=== PATIENT | male | born 1945 | race Caucasian/White ===

== ENCOUNTER 2020-09-02 12:33 | Inpatient (IN) ==
[2020-09-02 13:30] LABS: Basophils # 0.1 10*3/uL (0.0-0.2); Basophils % 1.2 % (0.0-0.8); Eosinophils # 0.4 10*3/uL (0.0-0.87); Eosinophils % 3.8 % (0.00-10.9); Hematocrit 46.2 VOL% (42.0-52.0); Hemoglobin 15.5 GM/DL (14.0-18.0); Immature Granulocytes % 1.9 %; Immature Granulocytes Absolute 0.21 #; Lymphocytes # 1.8 10*3/uL (1.4-4.0); Mean Corpuscular HGB Conc 33.5 GM/DL (32-36); Mean Corpuscular Volume 87.7 FL (87-102); Mean Platelet Volume 11.4 FL (9.6-12.0); Monocytes % 9.2 % (1.7-12.7); Neutrophils % 66.9 % (38.7-73.9); Platelet Count 306 T/CUMM (130-400); Red Blood Count 5.27 MC/CUMM (3.8-5.5); Red Cell Distribution Width 12.6 % (9.3-17.3); White Blood Count 10.8 T/CUMM (4-12)
[2020-09-02 13:41] LABS: PT Patient Result 11.1 SECS (9.8-11.9)
[2020-09-02 13:59] LABS: Albumin 4.1 G/DL (3.4-5.0); Bilirubin,Total 1.9 MG/DL (0.2-1.0); Calcium 9.5 MG/DL (8.5-10.1); Osmolality,Calculated 263.5 MOS/KG (273-304); Total Protein 7.6 G/DL (6.4-8.3)
[2020-09-02] MEDS ORDERED: ENOXAPARIN 40 MG/0.4 ML SYRINGE SUBCUT STA (15:52)
[2020-09-02] MEDS ORDERED: ceFAZolin 2,000 MG in PREMIX 1 EACH IV ONE (15:58)
[2020-09-02] MEDS ORDERED: oxyCODONE/ACETAMINOPHEN 5-325 MG TABLET PO PRN (16:13)
[2020-09-02] MEDS ORDERED: HYDROmorphone 2 MG/1 ML VIAL IV PRN (16:13)
[2020-09-02] MEDS ORDERED: LACTATED RINGERS 1,000 ML IV SCH (16:30)
[2020-09-03] MEDS ORDERED: FAMOTIDINE 20 MG TABLET PO ONE (06:00)
[2020-09-03] MEDS ORDERED: POTASSIUM CHLORIDE RIDER 10 MEQ in PREMIX 1 EACH IV PRN (08:02)
[2020-09-03] MEDS ORDERED: HEPARIN 5,000 UNIT/1 ML VIAL ONE (08:05)
[2020-09-03] MEDS ORDERED: ceFAZolin 1,000 MG VIAL IV ONE (08:30)
[2020-09-03] MEDS ORDERED: TISSUE ADHESIVE 1 EACH APPLICATOR TOP ONE (10:38)
[2020-09-03] MEDS ORDERED: ONDANSETRON 4 MG/2 ML VIAL IV PRN (10:51)
[2020-09-03] MEDS ORDERED: HYDROmorphone 2 MG/1 ML VIAL IV PRN (10:51)
[2020-09-03] MEDS ORDERED: LIDOCAINE 2% 5 ML VIAL ONE (11:05)
[2020-09-03] MEDS ORDERED: ePHEDrine 50 MG/ML VIAL ONE (11:05)
[2020-09-03] MEDS ORDERED: SEVOFLURANE 1 UNIT/15 MINUTE INH ONE (11:05)
[2020-09-03] MEDS ORDERED: fentaNYL 100 MCG/2 ML VIAL ONE (11:05)
[2020-09-03] MEDS ORDERED: propofoL 200 MG/20 ML VIAL IV ONE (11:05)
[2020-09-03] MEDS ORDERED: MIDAZOLAM 2 MG/2 ML VIAL ONE (11:05)
[2020-09-03] MEDS ORDERED: ACETAMINOPHEN 1,000 MG/100 ML VIAL IV ONE (11:06)
[2020-09-03] MEDS ORDERED: KETOROLAC 30 MG/1 ML VIAL ONE (11:06)
[2020-09-03] MEDS: LACTATED RINGERS 1,000 ML IV SCH ×2 (11:53→19:53)
[2020-09-03] MEDS ORDERED: ASPIRIN EC 81 MG TABLET PO SCH (12:00)
[2020-09-03] MEDS: oxyCODONE/ACETAMINOPHEN 5-325 MG TABLET PO PRN (12:43)
[2020-09-03] MEDS: ASPIRIN CHEW 81 MG TABLET PO SCH (12:43)
[2020-09-03] MEDS: LISINOPRIL/HCTZ 20-12.5 MG TABLET PO SCH (12:44)
[2020-09-03] MEDS: gemfibroziL 600 MG TABLET PO SCH (12:44)
[2020-09-03] MEDS: LEVOTHYROXINE 100 MCG TABLET PO SCH (12:45)
[2020-09-03] MEDS: SIMVASTATIN 20 MG TABLET PO SCH (12:45)
[2020-09-04] MEDS: LACTATED RINGERS 1,000 ML IV SCH (04:41)
[2020-09-04] MEDS ORDERED: ENOXAPARIN 40 MG/0.4 ML SYRINGE SUBCUT SCH (04:53)
[2020-09-04 06:15] LABS: Basophils # 0.1 10*3/uL (0.0-0.2); Basophils % 0.6 % (0.0-0.8); Eosinophils # 0.3 10*3/uL (0.0-0.87); Eosinophils % 2.6 % (0.00-10.9); Hematocrit 41.4 VOL% (42.0-52.0); Hemoglobin 13.8 GM/DL (14.0-18.0); Immature Granulocytes % 1.2 %; Immature Granulocytes Absolute 0.13 #; Lymphocytes # 1.3 10*3/uL (1.4-4.0); Lymphocytes % 12.4 % (21.2-54.2); Mean Corpuscular HGB Conc 33.3 GM/DL (32-36); Mean Corpuscular Volume 90.6 FL (87-102); Mean Platelet Volume 11.8 FL (9.6-12.0); Monocytes % 9.3 % (1.7-12.7); Neutrophils % 73.9 % (38.7-73.9); Platelet Count 226 T/CUMM (130-400); Red Blood Count 4.57 MC/CUMM (3.8-5.5); Red Cell Distribution Width 12.8 % (9.3-17.3); White Blood Count 10.6 T/CUMM (4-12)
[2020-09-04 06:36] LABS: Calcium 8.6 MG/DL (8.5-10.1); Osmolality,Calculated 273.1 MOS/KG (273-304)
[2020-09-04] MEDS: oxyCODONE/ACETAMINOPHEN 5-325 MG TABLET PO PRN (09:30)
[2020-09-04] MEDS: ASPIRIN CHEW 81 MG TABLET PO SCH (09:31)
[2020-09-04] MEDS ORDERED: RIVAROXABAN 2.5 MG TABLET PO SCH (10:30)
[2020-09-04 11:18] VITALS: BP 134/70
[2020-09-04] MEDS: gemfibroziL 600 MG TABLET PO SCH (11:24)
[2020-09-04] MEDS: SIMVASTATIN 20 MG TABLET PO SCH (11:24)
[2020-09-04] MEDS: LISINOPRIL/HCTZ 20-12.5 MG TABLET PO SCH (11:24)
[2020-09-04] MEDS: LEVOTHYROXINE 100 MCG TABLET PO SCH (11:24)
[2020-09-04] MEDS ORDERED: DEXAMETHASONE 4 MG TABLET PO SCH (12:00)
== END 2020-09-04 14:29 | disposition home or self-care (01) | DRG 254 ==
LOC: N.ED 12:33 → N.EDINP 16:05 → N.TELES 16:45
PROVIDERS: ADMIT Surgery; ATTEND Surgery